=== PATIENT | male | born 1950 | race Caucasian/White ===

== ENCOUNTER 2022-02-02 10:55 | Inpatient (IN) ==
[2022-02-04] MEDS ORDERED: Dextrose 4 GM Chewable Tablets PO PRN ×2 (11:55)
[2022-02-04] MEDS ORDERED: Triamcinolone Acet 0.1% CRM 15 GM TUBE TP PRN (11:55)
[2022-02-04] MEDS ORDERED: *HR* Dextrose 50 % in Water (Syg) 50 ML SYRINGE IVP PRN (11:55)
[2022-02-04] MEDS ORDERED: D5% in Water 1,000 ML IVC PRN (11:55)
[2022-02-04] MEDS: *HR* Heparin 5,000 UNIT/ML VIAL SQ SCH (17:20)
[2022-02-04] MEDS: Insulin LISPRO 300 UNITS/3 ML VIAL SUBQ SCH ×2 (17:21→20:17)
[2022-02-04] MEDS: Latanoprost 2.5 ML BOTTLE BOTH EYES SCH (20:16)
[2022-02-04] MEDS: *HR* Ticagrelor 90 MG TABLET PO SCH (20:16)
[2022-02-04] MEDS: cephALEXin 500 MG CAPSULE PO SCH (20:16)
[2022-02-05] MEDS: *HR* Heparin 5,000 UNIT/ML VIAL SQ SCH ×2 (05:13→18:20)
[2022-02-05 07:40] LABS: Basophils % 0.6 %; Eosinophils # 0.1 K/mcL (0.0-0.6); Eosinophils % 1.6 %; Hematocrit 34.6 % (37.5-50.1); Hemoglobin 10.8 g/dL (12.9-16.9); Immature Granulocytes % 1.1 % (0-4); Lymphocytes # 1.2 K/mcL (0.6-4.6); Lymphocytes % 18.2 %; Mean Corpuscular HGB Conc 31.2 g/dL (31.6-35.5); Mean Corpuscular Hemoglobin 28.2 pg (28.0-33.3); Mean Corpuscular Volume 90.3 fL (83.0-100.0); Mean Platelet Volume 11.2 fL (9.4-12.4); Monocytes # 0.7 K/mcL (0.0-1.3); Monocytes % 10.8 %; Neutrophils # 4.3 K/mcL (1.6-8.9); Platelet Count 264 K/mcL (140-400); Red Blood Count 3.83 M/mcL (4.19-5.50); Red Cell Distribution Width 14.1 % (11.5-14.5); Segmented Neutrophils % 67.7 %; White Blood Count 6.3 K/mcL (4.3-11.1)
[2022-02-05 07:53] LABS: BUN/Creatinine Ratio 18 (6-26); Blood Urea Nitrogen 22 mg/dL (8-23); Calcium 8.1 mg/dL (8.6-10.3); Carbon Dioxide 28 mEq/L (23-29); Chloride 106 mEq/L (98-107); Glucose 197 mg/dL (70-105); Osmolality,Calculated 299 (280-300); Potassium 3.5 mEq/L (3.5-5.1); Sodium 140 mEq/L (136-145); eGFR For African Americans > 60 (> 60); eGFR For Non-African Americans 59 (> 60)
[2022-02-05] MEDS: *HR* Ticagrelor 90 MG TABLET PO SCH ×2 (08:22→20:00)
[2022-02-05] MEDS: cephALEXin 500 MG CAPSULE PO SCH ×2 (08:22→20:00)
[2022-02-05] MEDS: Cholecalciferol (D-3) 1,000 UNIT (25MCG) TABLET PO SCH (08:23)
[2022-02-05] MEDS: Aspirin Enteric Coated 81 MG Tablet PO SCH (08:23)
[2022-02-05] MEDS: Metoprolol XL (24 HR) Succ 50 MG TAB.ER.24H PO SCH (08:24)
[2022-02-05] MEDS: Insulin LISPRO 300 UNITS/3 ML VIAL SUBQ SCH ×4 (08:25→19:53)
[2022-02-05] MEDS: Latanoprost 2.5 ML BOTTLE BOTH EYES SCH (20:01)
[2022-02-06] MEDS: Cholecalciferol (D-3) 1,000 UNIT (25MCG) TABLET PO SCH (07:56)
[2022-02-06] MEDS: Aspirin Enteric Coated 81 MG Tablet PO SCH (07:56)
[2022-02-06] MEDS: cephALEXin 500 MG CAPSULE PO SCH ×2 (07:57→20:05)
[2022-02-06] MEDS: Metoprolol XL (24 HR) Succ 50 MG TAB.ER.24H PO SCH (07:57)
[2022-02-06] MEDS: *HR* Ticagrelor 90 MG TABLET PO SCH ×2 (07:57→20:06)
[2022-02-06] MEDS: Insulin LISPRO 300 UNITS/3 ML VIAL SUBQ SCH ×4 (07:58→20:05)
[2022-02-06] MEDS: *HR* Heparin 5,000 UNIT/ML VIAL SQ SCH ×2 (08:04→16:51)
[2022-02-06] MEDS: Latanoprost 2.5 ML BOTTLE BOTH EYES SCH (20:04)
[2022-02-07] MEDS: *HR* Heparin 5,000 UNIT/ML VIAL SQ SCH ×2 (06:11→17:28)
[2022-02-07] MEDS: Insulin LISPRO 300 UNITS/3 ML VIAL SUBQ SCH ×4 (09:05→20:56)
[2022-02-07] MEDS: *HR* Ticagrelor 90 MG TABLET PO SCH ×2 (09:06→20:55)
[2022-02-07] MEDS: Metoprolol XL (24 HR) Succ 50 MG TAB.ER.24H PO SCH (09:06)
[2022-02-07] MEDS: cephALEXin 500 MG CAPSULE PO SCH ×2 (09:06→20:55)
[2022-02-07] MEDS: Cholecalciferol (D-3) 1,000 UNIT (25MCG) TABLET PO SCH (09:06)
[2022-02-07] MEDS: Aspirin Enteric Coated 81 MG Tablet PO SCH (09:06)
[2022-02-07] MEDS: Latanoprost 2.5 ML BOTTLE BOTH EYES SCH (20:55)
[2022-02-08] MEDS: *HR* Heparin 5,000 UNIT/ML VIAL SQ SCH ×2 (06:45→19:40)
[2022-02-08] MEDS: cephALEXin 500 MG CAPSULE PO SCH ×2 (08:57→20:31)
[2022-02-08] MEDS: Aspirin Enteric Coated 81 MG Tablet PO SCH (08:57)
[2022-02-08] MEDS: Insulin LISPRO 300 UNITS/3 ML VIAL SUBQ SCH ×4 (08:57→20:33)
[2022-02-08] MEDS: Cholecalciferol (D-3) 1,000 UNIT (25MCG) TABLET PO SCH (08:57)
[2022-02-08] MEDS: *HR* Ticagrelor 90 MG TABLET PO SCH ×2 (08:58→20:31)
[2022-02-08] MEDS: Metoprolol XL (24 HR) Succ 50 MG TAB.ER.24H PO SCH (08:58)
[2022-02-08] MEDS: Latanoprost 2.5 ML BOTTLE BOTH EYES SCH (20:32)
[2022-02-09] MEDS: *HR* Heparin 5,000 UNIT/ML VIAL SQ SCH ×2 (05:42→17:04)
[2022-02-09] MEDS: Insulin LISPRO 300 UNITS/3 ML VIAL SUBQ SCH ×4 (07:49→19:59)
[2022-02-09] MEDS: cephALEXin 500 MG CAPSULE PO SCH ×2 (09:13→19:58)
[2022-02-09] MEDS: Metoprolol XL (24 HR) Succ 50 MG TAB.ER.24H PO SCH (09:13)
[2022-02-09] MEDS: Aspirin Enteric Coated 81 MG Tablet PO SCH (09:14)
[2022-02-09] MEDS: *HR* Ticagrelor 90 MG TABLET PO SCH ×2 (09:14→19:58)
[2022-02-09] MEDS: Cholecalciferol (D-3) 1,000 UNIT (25MCG) TABLET PO SCH (09:17)
[2022-02-09] MEDS: Latanoprost 2.5 ML BOTTLE BOTH EYES SCH (19:57)
[2022-02-09] MEDS: Insulin DETEMIR 100 UNIT/ML X5UNITS SUBQ SCH (19:58)
[2022-02-10] MEDS: *HR* Heparin 5,000 UNIT/ML VIAL SQ SCH ×2 (05:57→16:38)
[2022-02-10] MEDS: Insulin LISPRO 300 UNITS/3 ML VIAL SUBQ SCH ×4 (08:12→20:28)
[2022-02-10] MEDS: Cholecalciferol (D-3) 1,000 UNIT (25MCG) TABLET PO SCH (08:13)
[2022-02-10] MEDS: Metoprolol XL (24 HR) Succ 50 MG TAB.ER.24H PO SCH (08:14)
[2022-02-10] MEDS: *HR* Ticagrelor 90 MG TABLET PO SCH ×2 (08:14→20:27)
[2022-02-10] MEDS: Aspirin Enteric Coated 81 MG Tablet PO SCH (08:14)
[2022-02-10] MEDS: Insulin DETEMIR 100 UNIT/ML X5UNITS SUBQ SCH ×2 (08:36→20:27)
[2022-02-10] MEDS: Latanoprost 2.5 ML BOTTLE BOTH EYES SCH (20:29)
[2022-02-11] MEDS: *HR* Heparin 5,000 UNIT/ML VIAL SQ SCH ×2 (06:33→16:53)
[2022-02-11 07:32] LABS: Hematocrit 31.4 % (37.5-50.1); Hemoglobin 9.9 g/dL (12.9-16.9); Mean Corpuscular HGB Conc 31.5 g/dL (31.6-35.5); Mean Corpuscular Hemoglobin 28.2 pg (28.0-33.3); Mean Corpuscular Volume 89.5 fL (83.0-100.0); Mean Platelet Volume 11.3 fL (9.4-12.4); Platelet Count 272 K/mcL (140-400); Red Blood Count 3.51 M/mcL (4.19-5.50); Red Cell Distribution Width 13.8 % (11.5-14.5); White Blood Count 9.9 K/mcL (4.3-11.1)
[2022-02-11] MEDS: Cholecalciferol (D-3) 1,000 UNIT (25MCG) TABLET PO SCH (08:12)
[2022-02-11] MEDS: *HR* Ticagrelor 90 MG TABLET PO SCH ×2 (08:12→20:55)
[2022-02-11] MEDS: Metoprolol XL (24 HR) Succ 50 MG TAB.ER.24H PO SCH (08:12)
[2022-02-11] MEDS: Aspirin Enteric Coated 81 MG Tablet PO SCH (08:13)
[2022-02-11] MEDS: Insulin LISPRO 300 UNITS/3 ML VIAL SUBQ SCH ×4 (08:15→20:56)
[2022-02-11 08:23] LABS: BUN/Creatinine Ratio 17 (6-26); Blood Urea Nitrogen 18 mg/dL (8-23); Calcium 8.5 mg/dL (8.6-10.3); Carbon Dioxide 29 mEq/L (23-29); Chloride 104 mEq/L (98-107); Glucose 148 mg/dL (70-105); Osmolality,Calculated 295 (280-300); Potassium 3.5 mEq/L (3.5-5.1); Sodium 140 mEq/L (136-145); eGFR For African Americans > 60 (> 60); eGFR For Non-African Americans > 60 (> 60)
[2022-02-11] MEDS: Insulin DETEMIR 100 UNIT/ML X5UNITS SUBQ SCH ×2 (09:43→20:57)
[2022-02-11] MEDS: Latanoprost 2.5 ML BOTTLE BOTH EYES SCH (20:57)
[2022-02-12] MEDS: *HR* Heparin 5,000 UNIT/ML VIAL SQ SCH ×2 (06:05→17:19)
[2022-02-12] MEDS: Insulin DETEMIR 100 UNIT/ML X5UNITS SUBQ SCH ×2 (08:34→20:55)
[2022-02-12] MEDS: Metoprolol XL (24 HR) Succ 50 MG TAB.ER.24H PO SCH (08:34)
[2022-02-12] MEDS: *HR* Ticagrelor 90 MG TABLET PO SCH ×2 (08:34→20:55)
[2022-02-12] MEDS: Insulin LISPRO 300 UNITS/3 ML VIAL SUBQ SCH ×4 (08:34→20:51)
[2022-02-12] MEDS: Aspirin Enteric Coated 81 MG Tablet PO SCH (08:35)
[2022-02-12] MEDS: Cholecalciferol (D-3) 1,000 UNIT (25MCG) TABLET PO SCH (08:35)
[2022-02-12] MEDS: Latanoprost 2.5 ML BOTTLE BOTH EYES SCH (20:54)
[2022-02-13] MEDS ORDERED: Acetaminophen 325 MG TABLET PO PRN (00:32)
[2022-02-13] MEDS ORDERED: *HR* OxyCODONE Immed Rel 5 MG TABLET PO ONE (00:34)
[2022-02-13] MEDS: *HR* Heparin 5,000 UNIT/ML VIAL SQ SCH ×2 (06:00→17:53)
[2022-02-13] MEDS: Insulin LISPRO 300 UNITS/3 ML VIAL SUBQ SCH ×4 (10:32→22:29)
[2022-02-13] MEDS: Metoprolol XL (24 HR) Succ 50 MG TAB.ER.24H PO SCH (10:33)
[2022-02-13] MEDS: Cholecalciferol (D-3) 1,000 UNIT (25MCG) TABLET PO SCH (10:33)
[2022-02-13] MEDS: Aspirin Enteric Coated 81 MG Tablet PO SCH (10:33)
[2022-02-13] MEDS: Insulin DETEMIR 100 UNIT/ML X5UNITS SUBQ SCH ×2 (10:33→22:29)
[2022-02-13] MEDS: *HR* Ticagrelor 90 MG TABLET PO SCH ×2 (10:34→22:28)
[2022-02-13] MEDS: Latanoprost 2.5 ML BOTTLE BOTH EYES SCH (22:27)
[2022-02-14] MEDS: *HR* Heparin 5,000 UNIT/ML VIAL SQ SCH ×2 (06:18→17:19)
[2022-02-14] MEDS: Aspirin Enteric Coated 81 MG Tablet PO SCH (08:03)
[2022-02-14] MEDS: *HR* Ticagrelor 90 MG TABLET PO SCH ×2 (08:03→21:04)
[2022-02-14] MEDS: Metoprolol XL (24 HR) Succ 50 MG TAB.ER.24H PO SCH (08:03)
[2022-02-14] MEDS: Insulin LISPRO 300 UNITS/3 ML VIAL SUBQ SCH ×4 (08:03→21:05)
[2022-02-14] MEDS: Cholecalciferol (D-3) 1,000 UNIT (25MCG) TABLET PO SCH (08:03)
[2022-02-14] MEDS: Insulin DETEMIR 100 UNIT/ML X5UNITS SUBQ SCH ×2 (10:07→20:57)
[2022-02-14] MEDS: Latanoprost 2.5 ML BOTTLE BOTH EYES SCH (21:02)
[2022-02-15] MEDS: Insulin LISPRO 300 UNITS/3 ML VIAL SUBQ SCH ×4 (10:52→22:56)
[2022-02-15] MEDS: *HR* Heparin 5,000 UNIT/ML VIAL SQ SCH ×2 (10:52→18:16)
[2022-02-15] MEDS: Insulin DETEMIR 100 UNIT/ML X5UNITS SUBQ SCH ×2 (10:53→22:56)
[2022-02-15] MEDS: Cholecalciferol (D-3) 1,000 UNIT (25MCG) TABLET PO SCH (10:53)
[2022-02-15] MEDS: Aspirin Enteric Coated 81 MG Tablet PO SCH (10:53)
[2022-02-15] MEDS: Metoprolol XL (24 HR) Succ 50 MG TAB.ER.24H PO SCH (10:53)
[2022-02-15] MEDS: *HR* Ticagrelor 90 MG TABLET PO SCH ×2 (10:53→22:55)
[2022-02-15] MEDS: Latanoprost 2.5 ML BOTTLE BOTH EYES SCH (22:56)
[2022-02-16] MEDS: *HR* Heparin 5,000 UNIT/ML VIAL SQ SCH ×2 (06:34→17:01)
[2022-02-16] MEDS: Insulin LISPRO 300 UNITS/3 ML VIAL SUBQ SCH ×4 (07:50→20:13)
[2022-02-16] MEDS: *HR* Ticagrelor 90 MG TABLET PO SCH ×2 (07:51→20:12)
[2022-02-16] MEDS: Cholecalciferol (D-3) 1,000 UNIT (25MCG) TABLET PO SCH (07:51)
[2022-02-16] MEDS: Aspirin Enteric Coated 81 MG Tablet PO SCH (07:51)
[2022-02-16] MEDS: Metoprolol XL (24 HR) Succ 50 MG TAB.ER.24H PO SCH (07:51)
[2022-02-16] MEDS: Insulin DETEMIR 100 UNIT/ML X5UNITS SUBQ SCH ×2 (09:16→20:13)
[2022-02-16] MEDS ORDERED: Ondansetron ODT 4 MG TAB.RAPDIS SL PRN (11:00)
[2022-02-16 11:26] LABS: Basophils # 0.1 K/mcL (0.0-0.2); Basophils % 0.6 %; Eosinophils # 0.1 K/mcL (0.0-0.6); Eosinophils % 1.1 %; Hematocrit 34.6 % (37.5-50.1); Hemoglobin 10.7 g/dL (12.9-16.9); Immature Granulocytes % 0.7 % (0-4); Lymphocytes # 1.3 K/mcL (0.6-4.6); Lymphocytes % 12.6 %; Mean Corpuscular HGB Conc 30.9 g/dL (31.6-35.5); Mean Corpuscular Hemoglobin 28.1 pg (28.0-33.3); Mean Corpuscular Volume 90.8 fL (83.0-100.0); Mean Platelet Volume 11.5 fL (9.4-12.4); Monocytes # 0.8 K/mcL (0.0-1.3); Monocytes % 7.5 %; Neutrophils # 7.8 K/mcL (1.6-8.9); Platelet Count 319 K/mcL (140-400); Red Blood Count 3.81 M/mcL (4.19-5.50); Red Cell Distribution Width 14.3 % (11.5-14.5); Segmented Neutrophils % 77.5 %
[2022-02-16 11:47] LABS: Alanine Aminotransferase 31 Units/L (7-52); Albumin 3.3 g/dL (3.5-5.7); Albumin/Globulin Ratio 0.9 (1.1-2.2); Alkaline Phosphatase 108 Units/L (34-104); Aspartate Amino Transferase 39 Units/L (13-39); BUN/Creatinine Ratio 21 (6-26); Bilirubin,Total 0.5 mg/dL (0.3-1.0); Blood Urea Nitrogen 32 mg/dL (8-23); Calcium 8.6 mg/dL (8.6-10.3); Carbon Dioxide 27 mEq/L (23-29); Chloride 103 mEq/L (98-107); Globulin 3.5 g/dL (2.4-3.5); Glucose 306 mg/dL (70-105); Osmolality,Calculated 302 (280-300); Potassium 4.5 mEq/L (3.5-5.1); Sodium 137 mEq/L (136-145); Total Protein 6.8 g/dL (6.4-8.9); eGFR For African Americans 55 (> 60); eGFR For Non-African Americans 45 (> 60)
[2022-02-16 12:07] LABS: Troponin I < 0.03 ng/mL (< 0.04)
[2022-02-16] MEDS: Latanoprost 2.5 ML BOTTLE BOTH EYES SCH (20:14)
[2022-02-17] MEDS: *HR* Heparin 5,000 UNIT/ML VIAL SQ SCH ×2 (06:34→17:49)
[2022-02-17] MEDS: Metoprolol XL (24 HR) Succ 50 MG TAB.ER.24H PO SCH (08:50)
[2022-02-17] MEDS: Aspirin Enteric Coated 81 MG Tablet PO SCH (08:50)
[2022-02-17] MEDS: *HR* Ticagrelor 90 MG TABLET PO SCH ×2 (08:50→20:43)
[2022-02-17] MEDS: Cholecalciferol (D-3) 1,000 UNIT (25MCG) TABLET PO SCH (08:50)
[2022-02-17] MEDS: Insulin DETEMIR 100 UNIT/ML X5UNITS SUBQ SCH ×2 (08:52→20:44)
[2022-02-17] MEDS: Insulin LISPRO 300 UNITS/3 ML VIAL SUBQ SCH ×5 (08:55→20:45)
[2022-02-17] MEDS: Latanoprost 2.5 ML BOTTLE BOTH EYES SCH (20:41)
[2022-02-18] MEDS: *HR* Heparin 5,000 UNIT/ML VIAL SQ SCH ×2 (05:07→17:03)
[2022-02-18] MEDS: Insulin LISPRO 300 UNITS/3 ML VIAL SUBQ SCH ×4 (07:18→20:59)
[2022-02-18 08:27] LABS: Calcium 8.9 mg/dL (8.6-10.3); Potassium 4.7 mEq/L (3.5-5.1)
[2022-02-18] MEDS: Aspirin Enteric Coated 81 MG Tablet PO SCH (09:45)
[2022-02-18] MEDS: Cholecalciferol (D-3) 1,000 UNIT (25MCG) TABLET PO SCH (09:45)
[2022-02-18] MEDS: Metoprolol XL (24 HR) Succ 50 MG TAB.ER.24H PO SCH (09:45)
[2022-02-18] MEDS: *HR* Ticagrelor 90 MG TABLET PO SCH ×2 (09:45→21:02)
[2022-02-18] MEDS: Insulin DETEMIR 100 UNIT/ML X5UNITS SUBQ SCH ×2 (09:46→20:56)
[2022-02-18] MEDS: Latanoprost 2.5 ML BOTTLE BOTH EYES SCH (21:01)
[2022-02-19] MEDS: *HR* Heparin 5,000 UNIT/ML VIAL SQ SCH ×2 (05:12→18:30)
[2022-02-19] MEDS: Insulin LISPRO 300 UNITS/3 ML VIAL SUBQ SCH ×4 (08:00→20:46)
[2022-02-19] MEDS: Metoprolol XL (24 HR) Succ 50 MG TAB.ER.24H PO SCH (08:01)
[2022-02-19] MEDS: Aspirin Enteric Coated 81 MG Tablet PO SCH (08:01)
[2022-02-19] MEDS: Cholecalciferol (D-3) 1,000 UNIT (25MCG) TABLET PO SCH (08:01)
[2022-02-19] MEDS: Insulin DETEMIR 100 UNIT/ML X5UNITS SUBQ SCH ×2 (08:01→20:45)
[2022-02-19] MEDS: *HR* Ticagrelor 90 MG TABLET PO SCH ×2 (08:01→20:45)
[2022-02-19] MEDS: Latanoprost 2.5 ML BOTTLE BOTH EYES SCH (20:45)
[2022-02-20] MEDS: *HR* Heparin 5,000 UNIT/ML VIAL SQ SCH ×2 (06:02→17:58)
[2022-02-20] MEDS: Insulin LISPRO 300 UNITS/3 ML VIAL SUBQ SCH ×4 (07:43→20:49)
[2022-02-20] MEDS: Cholecalciferol (D-3) 1,000 UNIT (25MCG) TABLET PO SCH (07:44)
[2022-02-20] MEDS: Metoprolol XL (24 HR) Succ 50 MG TAB.ER.24H PO SCH (07:44)
[2022-02-20] MEDS: Aspirin Enteric Coated 81 MG Tablet PO SCH (07:44)
[2022-02-20] MEDS: *HR* Ticagrelor 90 MG TABLET PO SCH ×2 (07:44→20:47)
[2022-02-20] MEDS: Insulin DETEMIR 100 UNIT/ML X5UNITS SUBQ SCH ×2 (08:59→20:48)
[2022-02-20] MEDS: Latanoprost 2.5 ML BOTTLE BOTH EYES SCH (20:52)
[2022-02-21] MEDS: *HR* Heparin 5,000 UNIT/ML VIAL SQ SCH ×2 (06:17→17:51)
[2022-02-21] MEDS: Insulin LISPRO 300 UNITS/3 ML VIAL SUBQ SCH ×4 (07:28→19:56)
[2022-02-21 07:33] LABS: Basophils # 0.1 K/mcL (0.0-0.2); Basophils % 0.7 %; Eosinophils # 0.3 K/mcL (0.0-0.6); Eosinophils % 2.4 %; Hematocrit 36.7 % (37.5-50.1); Hemoglobin 11.5 g/dL (12.9-16.9); Immature Granulocytes % 0.6 % (0-4); Lymphocytes # 2.4 K/mcL (0.6-4.6); Lymphocytes % 22.7 %; Mean Corpuscular HGB Conc 31.3 g/dL (31.6-35.5); Mean Corpuscular Volume 89.3 fL (83.0-100.0); Mean Platelet Volume 11.6 fL (9.4-12.4); Monocytes % 9.1 %; Neutrophils # 6.9 K/mcL (1.6-8.9); Platelet Count 341 K/mcL (140-400); Red Blood Count 4.11 M/mcL (4.19-5.50); Segmented Neutrophils % 64.5 %; White Blood Count 10.7 K/mcL (4.3-11.1)
[2022-02-21 07:54] LABS: BUN/Creatinine Ratio 22 (6-26); Blood Urea Nitrogen 28 mg/dL (8-23); Calcium 9.2 mg/dL (8.6-10.3); Carbon Dioxide 27 mEq/L (23-29); Chloride 102 mEq/L (98-107); Glucose 122 mg/dL (70-105); Osmolality,Calculated 289 (280-300); Potassium 4.1 mEq/L (3.5-5.1); Sodium 136 mEq/L (136-145); eGFR For African Americans > 60 (> 60); eGFR For Non-African Americans 56 (> 60)
[2022-02-21] MEDS: Cholecalciferol (D-3) 1,000 UNIT (25MCG) TABLET PO SCH (10:03)
[2022-02-21] MEDS: Aspirin Enteric Coated 81 MG Tablet PO SCH (10:03)
[2022-02-21] MEDS: Metoprolol XL (24 HR) Succ 50 MG TAB.ER.24H PO SCH (10:04)
[2022-02-21] MEDS: *HR* Ticagrelor 90 MG TABLET PO SCH ×2 (10:04→19:54)
[2022-02-21] MEDS: Insulin DETEMIR 100 UNIT/ML X5UNITS SUBQ SCH ×2 (10:06→20:05)
[2022-02-21] MEDS: Latanoprost 2.5 ML BOTTLE BOTH EYES SCH (19:56)
[2022-02-22] MEDS: *HR* Heparin 5,000 UNIT/ML VIAL SQ SCH (05:23)
[2022-02-22 06:50] VITALS: BP 114/63; PULSE 104; RESP 17; TEMP 97.8; O2SAT 97
[2022-02-22] MEDS ORDERED: Insulin DETEMIR 100 UNIT/ML X5UNITS SUBQ SCH (09:00)
[2022-02-22] MEDS: Insulin LISPRO 300 UNITS/3 ML VIAL SUBQ SCH ×2 (09:03→12:02)
[2022-02-22] MEDS: Metoprolol XL (24 HR) Succ 50 MG TAB.ER.24H PO SCH (09:04)
[2022-02-22] MEDS: *HR* Ticagrelor 90 MG TABLET PO SCH (09:05)
[2022-02-22] MEDS: Cholecalciferol (D-3) 1,000 UNIT (25MCG) TABLET PO SCH (09:05)
[2022-02-22] MEDS: Aspirin Enteric Coated 81 MG Tablet PO SCH (09:05)
[2022-02-22 15:12] LABS: Influenza A PCR Negative (Negative); Influenza B PCR Negative (Negative); Resp. Syncytial Virus PCR Negative (Negative)
[2022-02-22 15:13] LABS: SARS-CoV-2 by PCR (In House) Negative (Negative)
== END 2022-02-22 14:41 | DRG 682 ==
LOC: SUATTDRO 02-04 13:43 → INPPIK 02-04 13:43
PROVIDERS: ADMIT Internal Medicine; ATTEND Family Medicine